=== PATIENT | female | born 1935 | race Caucasian/White ===

== ENCOUNTER → 2016-12-23 | Outpatient (CLI) | payer MEDICARE, MEDICAID ==
--- NOTE | 2016-12-23 12:36 | WOMENS IMAGING REPORT ---
EXAM DESCRIPTION: BILAT SCREENING MAMMO W/CAD COMPLETED DATE/TIME: 12/23/2016 10:52 am REASON FOR STUDY: Z12.31, ROUTINE SCREENING MAMMO Z12.31 ENCNTR SCREEN MAMMOGRAM FOR MALIGNANT NEOP LASM OF KEVIN COMPARISON: Multiple since 2008 TECHNIQUE: Standard craniocaudal and mediolateral oblique views of each breast recorded using [employer] l acquisition. LIMITATIONS: None. FINDINGS: Findings present which are benign by mammographic criteria. No suspicious masses, calcifi cations or architectural distortion. Read with the assistance of CAD. .[facility] - R2 Cenova Version 1.3 .[facility] Imaging - R2 Cenova Version 1.3 .[facility] Imaging - R2 Cenova Version 2.4 .[facility] [place] R2 Cenova Version 2.4 .[facility] - R2 Looping Inspector Version 9.2 Benign mammographic findings may include one or more of the following: Smooth masses, popcorn/rim/co arse calcifications, asymmetries, post-procedure changes, and lesions with long-standing stability. BREAST DENSITY: b. There are scattered areas of fibroglandular density. BIRAD: 2 BENIGN FINDING(S) RECOMMENDATION: ROUTINE SCREENING COMMENT: PATIENT NOTIFIED BY LETTER. The [employer] recommends an annual screening mammogram for women aged 40 years or over. Each patient will receive a reminder prior to the anniversary date of her mammogram. The [employer] (ACR) has developed recommendations for screening MRI of the breast s in certain patient populations, to be used in conjunction with mammography. Breast MRI surveillanc e may be appropriate for women with more than 20% lifetime risk of developing breast cancer as deter mined by genetic testing, significant family history of the disease, or history of mantle radiation f or Hodgkins Disease. ACR Practice Guidelines 2008. TECHNICAL DOCUMENTATION: FINDING NUMBER: (1) ASSESSMENT: (1) JOB ID: [id number] [employer]- All Rights Reserved
== END ==
LOC: WI 10:30
PROVIDERS: ATTEND Internal Medicine
DX: Z12.31 Encounter for screening mammogram for malignant neoplasm of breast (principal)
CPT/HCPCS: 77067; G0202

== ENCOUNTER → 2017-04-26 | Outpatient (CLI) | payer MEDICARE, MEDICAID ==
[2017-04-26 10:11] LABS: ABSOLUTE BASOPHILS # (AUTO) 0.1 10^3/uL (0.0-0.2); ABSOLUTE EOSINOPHILS # (AUTO) 0.2 10^3/uL (0.0-0.6); ABSOLUTE LYMPHOCYTES (AUTO) 2.3 10^3/uL (0.5-4.7); ABSOLUTE MONOCYTES (AUTO) 0.5 10^3/uL (0.1-1.4); ABSOLUTE NEUT (AUTO) 3.2 10^3/uL (1.7-8.2); BASOPHILS % (AUTO) 1.1 % (0-2); EOSINOPHILS % (AUTO) 2.5 % (0-6); HEMATOCRIT 43.9 % (36.0-47.0); HEMOGLOBIN 14.7 g/dL (12.0-15.5); HGB HCT DIFFERENCE 0.2; LYMPHOCYTES % (AUTO) 36.7 % (13-45); MEAN CORPUSCULAR HEMOGLOBIN 31.6 pg (27.0-33.4); MEAN CORPUSCULAR HGB CONC 33.6 g/dL (32.0-36.0); MEAN CORPUSCULAR VOLUME 94 fl (80-97); MONOCYTES % (AUTO) 7.9 % (3-13); RED BLOOD COUNT 4.66 10^6/uL (3.72-5.28); SEGMENTED NEUTROPHILS % (AUTO) 51.8 % (42-78); WHITE BLOOD COUNT 6.2 10^3/uL (4.0-10.5)
[2017-04-26 10:24] LABS: APPEARANCE,URINE SLIGHTLY-CLOUDY; BILIRUBIN,URINE NEGATIVE (NEGATIVE); GLUCOSE, URINE NEGATIVE (NEGATIVE); KETONES,URINE NEGATIVE (NEGATIVE); LEUKOCYTE ESTERASE,URINE TRACE (NEGATIVE); NITRITE,URINE NEGATIVE (NEGATIVE); PROTEIN,URINE NEGATIVE (NEGATIVE); URINE SPECIFIC GRAVITY 1.016
[2017-04-26 10:46] LABS: ALANINE AMINOTRANSFERASE 35 U/L (9-52); ALBUMIN 3.6 g/dL (3.5-5.0); ALKALINE PHOSPHATASE 97 U/L (38-126); ANION GAP 11 (5-19); ASPARTATE AMINO TRANSFERASE 52 U/L (14-36); BILIRUBIN,DIRECT 0.3 mg/dL (0.0-0.4); BILIRUBIN,TOTAL 1.1 mg/dL (0.2-1.3); BLOOD UREA NITROGEN 18 mg/dL (7-20); CALCIUM 9.2 mg/dL (8.4-10.2); CARBON DIOXIDE 24 mmol/L (22-30); CHLORIDE 109 mmol/L (98-107); CHOLESTEROL 143.44 mg/dL (0-200); CREATININE RESULT 1.08 mg/dL (0.52-1.25); Direct HDL 33 mg/dL (>40); GLUCOSE 88 mg/dL (75-110); POTASSIUM 4.9 mmol/L (3.6-5.0); SODIUM 144.3 mmol/L (137-145); TOTAL PROTEIN 6.7 g/dL (6.3-8.2); TRIGLYCERIDES 129 mg/dL (<150)
[2017-04-26 10:57] LABS: DIRECT LDL 76 mg/dL (<100)
[2017-04-26 10:58] LABS: PHOSPHORUS 4.1 mg/dL (2.5-4.5)
[2017-04-26 11:20] LABS: ANION GAP 11 (5-19); BLOOD UREA NITROGEN 18 mg/dL (7-20); CALCIUM 9.2 mg/dL (8.4-10.2); CARBON DIOXIDE 24 mmol/L (22-30); CHLORIDE 109 mmol/L (98-107); CREATININE RESULT 1.08 mg/dL (0.52-1.25); GLUCOSE 88 mg/dL (75-110); POTASSIUM 4.9 mmol/L (3.6-5.0); SODIUM 144.3 mmol/L (137-145)
[2017-04-26 11:21] LABS: ALBUMIN 3.6 g/dL (3.5-5.0)
[2017-04-27 07:12] LABS: VITAMIN D 25-HYDROXY 39.9 ng/mL (30.0-100.0)
[2017-04-27 11:40] LABS: CREATININE URINE 134.9 mg/dL (Not Estab.); MICROALBUMIN URINE 9.1 ug/mL (Not Estab.)
== END ==
LOC: OD 08:43
PROVIDERS: ATTEND Internal Medicine Nephrology
DX: E78.4 Other hyperlipidemia (principal); I10 Essential (primary) hypertension; I35.1 Nonrheumatic aortic (valve) insufficiency; I35.0 Nonrheumatic aortic (valve) stenosis; R01.0 Benign and innocent cardiac murmurs; M15.9 Polyosteoarthritis, unspecified; R09.89 Other specified symptoms and signs involving the circulatory and respiratory systems; Z79.899 Other long term (current) drug therapy
CPT/HCPCS: 36415; 80048; 80053; 80061; 81001; 82040; 82043; 82306; 82570; 83970; 84100; 85025

== ENCOUNTER → 2017-10-25 | Outpatient (CLI) | payer MEDICARE, MEDICAID ==
[2017-10-25 10:45] LABS: ANION GAP 10 (5-19); BLOOD UREA NITROGEN 15 mg/dL (7-20); CALCIUM 8.7 mg/dL (8.4-10.2); CARBON DIOXIDE 22 mmol/L (22-30); CHLORIDE 113 mmol/L (98-107); GLUCOSE 79 mg/dL (75-110); POTASSIUM 4.9 mmol/L (3.6-5.0)
== END ==
LOC: OD 08:07
PROVIDERS: ATTEND Internal Medicine Nephrology
DX: N18.3 Chronic kidney disease, stage 3 (moderate) (principal)
CPT/HCPCS: 36415; 80048

== ENCOUNTER → 2017-12-25 | Outpatient (CLI) | payer MEDICARE, MEDICAID ==
--- NOTE | 2017-12-25 11:42 | WOMENS IMAGING REPORT ---
EXAM DESCRIPTION: BILAT SCREENING MAMMO W/CAD COMPLETED DATE/TIME: 12/25/2017 11:11 am REASON FOR STUDY: SCREENING MAMMO Z12.31 ENCNTR SCREEN MAMMOGRAM FOR MALIGNANT NEOPLASM OF KEVIN COMPARISON: 1530-1515 TECHNIQUE: Standard craniocaudal and mediolateral oblique views of each breast recorded using digita l acquisition. LIMITATIONS: None. FINDINGS: No masses, calcifications or architectural distortion. No areas of suspicion. Read with the assistance of CAD. .[facility] - R2 Cenova Version 1.3 .[facility] Imaging - R2 Cenova Version 1.3 .[facility] Imaging - R2 Cenova Version 2.4 .[facility] [place] - R2 Cenova Version 2.4 .[facility] - R2 Hot Die Picker Version 9.2 IMPRESSION: NORMAL MAMMOGRAM. BIRADS 1. BREAST DENSITY: a. The breasts are almost entirely fatty. BIRAD: 1 NEGATIVE RECOMMENDATION: ROUTINE SCREENING COMMENT: The patient has been notified of the results by letter per [place] requirements. Additional no tification policies are in place for contacting patient with suspicious or incomplete findings. Quality ID #[id number]: The [employer] recommends an annual screening mammogram for women aged 40 years or over. This facility utilizes a reminder system to ensure that all patients receive reminder letters, and/or direct phone calls for appointments. This includes reminders for routine scr eening mammograms, diagnostic mammograms, or other Breast Imaging Interventions when appropriate. Th is patient will be placed in the appropriate reminder system. The [employer] (ACR) has developed recommendations for screening MRI of the breast s in certain patient populations, to be used in conjunction with mammography. Breast MRI surveillanc e may be appropriate for women with more than 20% lifetime risk of developing breast cancer as deter mined by genetic testing, significant family history of the disease, or history of mantle radiation f or Hodgkins Disease. ACR Practice Guidelines 2008. TECHNICAL DOCUMENTATION: FINDING NUMBER: (1) ASSESSMENT: (1) JOB ID: [id number] [employer]- All Rights Reserved
== END ==
LOC: WI 10:52
PROVIDERS: ATTEND Internal Medicine
DX: Z12.31 Encounter for screening mammogram for malignant neoplasm of breast (principal)
CPT/HCPCS: 77067

== ENCOUNTER → 2018-04-30 | Outpatient (CLI) | payer MEDICARE, MEDICAID ==
[2018-04-30 11:15] LABS: ABSOLUTE EOSINOPHILS # (AUTO) 0.2 10^3/uL (0.0-0.6); ABSOLUTE LYMPHOCYTES (AUTO) 2.5 10^3/uL (0.5-4.7); ABSOLUTE MONOCYTES (AUTO) 0.4 10^3/uL (0.1-1.4); BASOPHILS % (AUTO) 0.7 % (0-2); EOSINOPHILS % (AUTO) 3.6 % (0-6); HEMATOCRIT 39.8 % (36.0-47.0); HEMOGLOBIN 13.5 g/dL (12.0-15.5); LYMPHOCYTES % (AUTO) 39.8 % (13-45); MEAN CORPUSCULAR HEMOGLOBIN 31.6 pg (27.0-33.4); MEAN CORPUSCULAR HGB CONC 33.9 g/dL (32.0-36.0); MEAN CORPUSCULAR VOLUME 93 fl (80-97); MONOCYTES % (AUTO) 6.9 % (3-13); RED BLOOD COUNT 4.26 10^6/uL (3.72-5.28); RED CELL DISTRIBUTION WIDTH 15.9 % (11.5-14.0); TOTAL CELLS COUNTED % (AUTO) 100 %; WHITE BLOOD COUNT 6.2 10^3/uL (4.0-10.5)
[2018-04-30 11:34] LABS: APPEARANCE,URINE CLOUDY; BILIRUBIN,URINE NEGATIVE (NEGATIVE); GLUCOSE, URINE NEGATIVE (NEGATIVE); KETONES,URINE NEGATIVE (NEGATIVE); LEUKOCYTE ESTERASE,URINE LARGE (NEGATIVE); NITRITE,URINE NEGATIVE (NEGATIVE); PROTEIN,URINE NEGATIVE (NEGATIVE); URINE SPECIFIC GRAVITY 1.018
[2018-04-30 11:37] LABS: ALBUMIN 3.3 g/dL (3.5-5.0); ANION GAP 9 (5-19); BLOOD UREA NITROGEN 18 mg/dL (7-20); CALCIUM 9.1 mg/dL (8.4-10.2); CARBON DIOXIDE 23 mmol/L (22-30); CHLORIDE 113 mmol/L (98-107); GLUCOSE 81 mg/dL (75-110); PHOSPHORUS 3.8 mg/dL (2.5-4.5); POTASSIUM 4.5 mmol/L (3.6-5.0); SODIUM 144.7 mmol/L (137-145)
[2018-04-30 11:50] LABS: ALANINE AMINOTRANSFERASE 29 U/L (9-52); ALBUMIN 3.3 g/dL (3.5-5.0); ALKALINE PHOSPHATASE 78 U/L (38-126); ANION GAP 9 (5-19); ASPARTATE AMINO TRANSFERASE 51 U/L (14-36); BILIRUBIN,DIRECT 0.4 mg/dL (0.0-0.4); BILIRUBIN,TOTAL 1.5 mg/dL (0.2-1.3); BLOOD UREA NITROGEN 18 mg/dL (7-20); CALCIUM 9.1 mg/dL (8.4-10.2); CARBON DIOXIDE 23 mmol/L (22-30); CHLORIDE 113 mmol/L (98-107); CHOLESTEROL 121.87 mg/dL (0-200); DIRECT LDL 68 mg/dL (<100); GLUCOSE 81 mg/dL (75-110); POTASSIUM 4.5 mmol/L (3.6-5.0); SODIUM 144.7 mmol/L (137-145); TOTAL PROTEIN 6.1 g/dL (6.3-8.2); TRIGLYCERIDES 83 mg/dL (<150); VLDL CHOLESTEROL 16.6 mg/dL (10-31)
[2018-04-30 11:50] LABS: ADD MANUAL MICROSCOPIC YES; COLOR,URINE YELLOW
[2018-04-30 11:52] LABS: BACTERIA,URINE 2+ /HPF; WBC,URINE 30-50 /HPF
[2018-04-30 11:55] LABS: PLATELET COUNT 82 10^3/uL (150-450)
[2018-05-01 13:38] LABS: CREATININE URINE 164.5 mg/dL (Not Estab.); MICROALBUMIN URINE 28.2 ug/mL (Not Estab.)
== END ==
LOC: OD 10:18
PROVIDERS: ATTEND Internal Medicine Nephrology
DX: I12.9 Hypertensive chronic kidney disease with stage 1 through stage 4 chronic kidney disease, or unspecified chronic kidney disease (principal); N18.3 Chronic kidney disease, stage 3 (moderate); E78.4 Other hyperlipidemia; I35.1 Nonrheumatic aortic (valve) insufficiency; I35.0 Nonrheumatic aortic (valve) stenosis; R01.1 Cardiac murmur, unspecified; M15.9 Polyosteoarthritis, unspecified; R09.89 Other specified symptoms and signs involving the circulatory and respiratory systems; Z79.899 Other long term (current) drug therapy
CPT/HCPCS: 36415; 80048; 80053; 80061; 81001; 82040; 82043; 82306; 82570; 83970; 84100; 85025

== ENCOUNTER → 2018-12-01 | Outpatient (CLI) | payer MEDICARE, MEDICAID ==
[2018-12-01 10:33] LABS: ALANINE AMINOTRANSFERASE 22 U/L (9-52); ALBUMIN 2.9 g/dL (3.5-5.0); ALKALINE PHOSPHATASE 94 U/L (38-126); ASPARTATE AMINO TRANSFERASE 49 U/L (14-36); BILIRUBIN,DIRECT 0.4 mg/dL (0.0-0.4); BILIRUBIN,TOTAL 1.6 mg/dL (0.2-1.3); BLOOD UREA NITROGEN 16 mg/dL (7-20); CALCIUM 8.7 mg/dL (8.4-10.2); CHOLESTEROL 103.17 mg/dL (0-200); GLUCOSE 89 mg/dL (75-110); POTASSIUM 4.9 mmol/L (3.6-5.0); TOTAL PROTEIN 6.2 g/dL (6.3-8.2); TRIGLYCERIDES 76 mg/dL (<150)
[2018-12-01 10:38] LABS: ANION GAP 6 (5-19); CARBON DIOXIDE 23 mmol/L (22-30); CHLORIDE 113 mmol/L (98-107); SODIUM 141.7 mmol/L (137-145)
[2018-12-01 10:44] LABS: DIRECT LDL 60 mg/dL (<100)
== END ==
LOC: OD 09:13
PROVIDERS: ATTEND Internal Medicine
DX: I12.9 Hypertensive chronic kidney disease with stage 1 through stage 4 chronic kidney disease, or unspecified chronic kidney disease (principal); N18.2 Chronic kidney disease, stage 2 (mild); I35.1 Nonrheumatic aortic (valve) insufficiency; R01.1 Cardiac murmur, unspecified; E78.49 Other hyperlipidemia; M15.9 Polyosteoarthritis, unspecified; R09.89 Other specified symptoms and signs involving the circulatory and respiratory systems; Z79.899 Other long term (current) drug therapy
CPT/HCPCS: 36415; 80053; 80061

== ENCOUNTER 2018-12-09 09:31 | Emergency (ER) | payer MEDICARE, MEDICAID ==
--- NOTE | 2018-12-09 10:18 | ER Document Report ---
ED Medical Screen (RME) - General Chief Complaint: Abdominal Pain Stated Complaint: STOMACH PAIN Time Seen by Provider: 12/09/18 10:17 Mode of Arrival: Ambulatory Information source: Patient TRAVEL OUTSIDE OF THE [place] IN LAST 30 DAYS: No - HPI Patient complains to provider of: abd pain Onset: Other - pt. states mid abd pain for the past 2-3 months - Related Data Allergies/Adverse Reactions: No Known Allergies Allergy (Verified 12/09/18 09:31) Past Medical History - Past Medical History Cardiac Medical History: Reports: Hx Hypertension - medicated Denies: Hx Coronary Artery Disease, Hx Heart Attack Pulmonary Medical History: Reports: Hx Pneumonia Denies: Hx Asthma, Hx Bronchitis, Hx COPD Neurological Medical History: Denies: Hx Cerebrovascular Accident, Hx Seizures GI Medical History: Denies: Hx Hepatitis, Hx Hiatal Hernia, Hx Ulcer Musculoskeltal Medical History: Reports Hx Arthritis Infectious Medical History: Denies: Hx Hepatitis Past Surgical History: Denies: Hx Hysterectomy, Hx Mastectomy, Hx Open Heart Surgery, Hx Pacemaker - Immunizations Hx Diphtheria, Pertussis, Tetanus Vaccination: Yes Physical Exam - Vital signs Vitals: Temp Pulse Resp BP Pulse Ox 97.4 F 62 16 152/69 H 100 12/09/18 09:44 12/09/18 09:44 12/09/18 09:44 12/09/18 09:44 12/09/18 09:44 Course - Vital Signs Vital signs: Temp Pulse Resp BP Pulse Ox 97.4 F 62 16 152/69 H 100 12/09/18 09:44 12/09/18 09:44 12/09/18 09:44 12/09/18 09:44 12/09/18 09:44 Doctor's Discharge - Discharge Referrals: JOSE NORIEGA MD [Primary Care Provider] - Follow up as needed
--- NOTE | 2018-12-09 11:10 | RADIOLOGY REPORT (SQ) ---
EXAM DESCRIPTION: ACUTE ABDOMEN SERIES COMPLETED DATE/TIME: 12/09/2018 10:48 am REASON FOR STUDY: abd pain COMPARISON: None. NUMBER OF VIEWS: Three views. TECHNIQUE: Frontal chest, supine abdomen and upright/decubitus abdomen radiographic images acquired. LIMITATIONS: None. FINDINGS: CHEST: Lungs clear of infiltrates. FREE AIR: None. No abnormal gas collections. BOWEL GAS PATTERN: Nonobstructive pattern. No dilated loops or air fluid levels. CALCIFICATIONS: No suspicious calcifications. HARDWARE: Right upper quadrant clips. SOFT TISSUES: No gross mass or suggestion of organomegaly. BONES: No acute fracture. No worrisome bone lesions. OTHER: No other significant finding. IMPRESSION: NO RADIOGRAPHIC EVIDENCE FOR ACUTE ABDOMINAL DISEASE. TECHNICAL DOCUMENTATION: JOB ID: [id number] [employer]- All Rights Reserved Reading location - IP/workstation name: [email or web address]
[2018-12-09] MEDS ORDERED: NORMAL SALINE 500 ML IV ONE (11:26)
[2018-12-09 11:42] LABS: ABSOLUTE BASOPHILS # (AUTO) 0.1 10^3/uL (0.0-0.2); ABSOLUTE EOSINOPHILS # (AUTO) 0.2 10^3/uL (0.0-0.6); ABSOLUTE LYMPHOCYTES (AUTO) 2.3 10^3/uL (0.5-4.7); ABSOLUTE MONOCYTES (AUTO) 0.6 10^3/uL (0.1-1.4); ABSOLUTE NEUT (AUTO) 5.1 10^3/uL (1.7-8.2); BASOPHILS % (AUTO) 1.2 % (0-2); EOSINOPHILS % (AUTO) 2.1 % (0-6); HEMATOCRIT 39.5 % (36.0-47.0); HEMOGLOBIN 13.4 g/dL (12.0-15.5); LYMPHOCYTES % (AUTO) 27.5 % (13-45); MEAN CORPUSCULAR HEMOGLOBIN 31.9 pg (27.0-33.4); MEAN CORPUSCULAR HGB CONC 33.8 g/dL (32.0-36.0); MEAN CORPUSCULAR VOLUME 94 fl (80-97); MONOCYTES % (AUTO) 7.2 % (3-13); PLATELET COUNT 150 10^3/uL (150-450); RED BLOOD COUNT 4.18 10^6/uL (3.72-5.28); RED CELL DISTRIBUTION WIDTH 16.7 % (11.5-14.0); TOTAL CELLS COUNTED % (AUTO) 100 %; WHITE BLOOD COUNT 8.3 10^3/uL (4.0-10.5)
[2018-12-09 11:56] LABS: ALANINE AMINOTRANSFERASE 32 U/L (9-52); ALBUMIN 3.1 g/dL (3.5-5.0); ALKALINE PHOSPHATASE 110 U/L (38-126); ANION GAP 5 (5-19); ASPARTATE AMINO TRANSFERASE 61 U/L (14-36); BILIRUBIN,DIRECT 0.2 mg/dL (0.0-0.4); BILIRUBIN,TOTAL 1.1 mg/dL (0.2-1.3); BLOOD UREA NITROGEN 13 mg/dL (7-20); CALCIUM 8.3 mg/dL (8.4-10.2); CARBON DIOXIDE 23 mmol/L (22-30); CHLORIDE 115 mmol/L (98-107); GLUCOSE 94 mg/dL (75-110); LIPASE 156.8 U/L (23-300); POTASSIUM 5.1 mmol/L (3.6-5.0); SODIUM 142.8 mmol/L (137-145); TOTAL PROTEIN 6.3 g/dL (6.3-8.2)
--- NOTE | 2018-12-09 12:54 | RADIOLOGY REPORT (SQ) ---
EXAM DESCRIPTION: CT ABD/PELVIS WITH IV ONLY COMPLETED DATE/TIME: 12/09/2018 12:41 pm REASON FOR STUDY: abd pain COMPARISON: None. TECHNIQUE: CT scan of the abdomen and pelvis performed using helical scanning technique with dynamic intravenous contrast injection. No oral contrast. Images reviewed with lung, soft tissue, and bone windows. Reconstructed coronal and sagittal MPR images reviewed. Delayed images for evaluation of the urinary system also acquired. All images stored on PACS. All CT scanners at this facility use dose modulation, iterative reconstruction, and/or weight based d osing when appropriate to reduce radiation dose to as low as reasonably achievable (ALARA). [facility]: Dose Right [facility]: CareDose [facility]: Dose Right [facility]: Teradose 4D [facility]: Smart [employer] CONTRAST TYPE AND DOSE: Not recorded not recorded RENAL FUNCTION: GFR > 60. RADIATION DOSE: . LIMITATIONS: None. FINDINGS: LOWER CHEST: No significant findings. No nodules or infiltrates. LIVER: No focal masses in the liver. The liver is small and slightly nodular. The main portal vein is widely patent however the left and right portal vein branch tears are extremely small. . SPLEEN: Spleen is normal size. Left upper quadrant varices. PANCREAS: No masses. No significant calcifications. No adjacent inflammation or peripancreatic fluid collections. Pancreatic duct not dilated. GALLBLADDER: Surgically absent ADRENAL GLANDS: No significant finding. RIGHT KIDNEY AND URETER: No solid masses. No significant calcifications. No hydronephrosis or hyd roureter. LEFT KIDNEY AND URETER: No solid masses. No significant calcifications. No hydronephrosis or hydr oureter. AORTA AND VESSELS: No aneurysm. No dissection. Renal arteries, SMA, celiac without stenosis. RETROPERITONEUM: No retroperitoneal adenopathy, hemorrhage or masses. BOWEL AND PERITONEAL CAVITY: Diverticulosis. Marked ascites. Hiatal hernia. APPENDIX: Not visualized. PELVIS: Generalize free fluid. The bladder is unremarkable. ABDOMINAL WALL: No masses. No hernias. BONES: No significant or acute findings. OTHER: No other significant finding. 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 Marked ascites. Main portal vein is patent however left and right portal veins are quite small. Suspect portal hyper tension. Left upper quadrant varices. TECHNICAL DOCUMENTATION: JOB ID: [id number] Quality ID # [id number]: Final reports with documentation of one or more dose reduction techniques (e.g., Au tomated exposure control, adjustment of the mA and/or kV according to patient size, use of iterative reconstruction technique) 2010 [employer]- All Rights Reserved Reading location - IP/workstation name: [email or web address]
--- NOTE | 2018-12-09 13:43 | ER Document Report ---
ED General - General Chief Complaint: Abdominal Pain Stated Complaint: STOMACH PAIN Time Seen by Provider: 12/09/18 10:17 Mode of Arrival: Ambulatory TRAVEL OUTSIDE OF THE [place]. IN LAST 30 DAYS: No - HPI Patient complains to provider of: Abdominal pain Notes: Patient coming in for evaluation of abdominal pain. Patient is known pain ongoing for the last 2 months. Patient states has a history of diverticulosis diverticulitis. Patient denies any nausea vomiting diarrhea fever chills. Patient states she is seeing her primary care physician multiple times for abdominal pain however no answers has been given to her. Patient states she goes to start medical. Patient denies any recent antibiotics. Patient denies any trauma. Patient states she feels like her stomach continues to bloat otherwise denies acute exacerbation of any of her chronic complaints. - Related Data Allergies/Adverse Reactions: No Known Allergies Allergy (Verified 12/09/18 09:31) Past Medical History - General Information source: Patient - Social History Smoking Status: Never Smoker Frequency of alcohol use: None Family History: Reviewed & Not Pertinent Patient has suicidal ideation: No Patient has homicidal ideation: No - Past Medical History Cardiac Medical History: Reports: Hx Hypertension - medicated Denies: Hx Coronary Artery Disease, Hx Heart Attack Pulmonary Medical History: Reports: Hx Pneumonia Denies: Hx Asthma, Hx Bronchitis, Hx COPD Neurological Medical History: Denies: Hx Cerebrovascular Accident, Hx Seizures Renal/ Medical History: Denies: Hx Peritoneal Dialysis GI Medical History: Denies: Hx Hepatitis, Hx Hiatal Hernia, Hx Ulcer Musculoskeletal Medical History: Reports Hx Arthritis Infectious Medical History: Denies: Hx Hepatitis Past Surgical History: Denies: Hx Hysterectomy, Hx Mastectomy, Hx Open Heart Surgery, Hx Pacemaker - Immunizations Hx Diphtheria, Pertussis, Tetanus Vaccination: Yes Review of Systems - Review of Systems Constitutional: No symptoms reported EENT: No symptoms reported Cardiovascular: No symptoms reported Respiratory: No symptoms reported Gastrointestinal: Abdominal pain Genitourinary: No symptoms reported Female Genitourinary: No symptoms reported Musculoskeletal: No symptoms reported Skin: No symptoms reported Hematologic/Lymphatic: No symptoms reported Neurological/Psychological: No symptoms reported -: Yes All other systems reviewed and negative Physical Exam - Vital signs Vitals: Temp Pulse Resp BP Pulse Ox 97.4 F 62 16 152/69 H 100 12/09/18 09:44 12/09/18 09:44 12/09/18 09:44 12/09/18 09:44 12/09/18 09:44 Interpretation: Normal - General General appearance: Appears well, Alert - HEENT Head: Normocephalic, Atraumatic Eyes: Normal Pupils: PERRL - Respiratory Respiratory status: No respiratory distress Chest status: Nontender Breath sounds: Normal Chest palpation: Normal - Cardiovascular Rhythm: Regular Heart sounds: Normal auscultation Murmur: No - Abdominal Inspection: Normal Distension: Fluid wave Bowel sounds: Normal Tenderness: Nontender Organomegaly: No organomegaly - Back Back: Normal, Nontender - Extremities General upper extremity: Normal inspection, Nontender, Normal color, Normal ROM, Normal temperature General lower extremity: Normal inspection, Nontender, Normal color, Normal ROM, Normal temperature, Normal weight bearing. No: Teetee's sign - Neurological Neuro grossly intact: Yes Cognition: Normal Orientation: AAOx4 Luis Coma Scale Eye Opening: Spontaneous Luis Coma Scale Verbal: Oriented Luis Coma Scale Motor: Obeys Commands Luis Coma Scale Total: 15 Speech: Normal Motor strength normal: LUE, RUE, LLE, RLE Sensory: Normal - Psychological Associated symptoms: Normal affect, Normal mood - Skin Skin Temperature: Warm Skin Moisture: Dry Skin Color: Normal Course - Re-evaluation Re-evalutation: 12/09/18 14:37 CT scan shows possible signs of portal hypertension with cirrhosis with ascites. Patient has no white count no fever no abdominal tenderness upon examination do not suspect SBP or any other critical pathology. To the patient that she will need to follow-up with her primary care physician on Monday and will likely need a referral to a GI specialist for further evaluation. Patient stated understanding was able to ambulate all the ER referral for her care. - Vital Signs Vital signs: Temp Pulse Resp BP Pulse Ox 97.5 F 68 18 114/66 100 12/09/18 13:58 12/09/18 13:58 12/09/18 13:58 12/09/18 13:58 12/09/18 13:58 - Laboratory Result Diagrams: 12/09/18 11:25 12/09/18 11:25 Laboratory results interpreted by me: 12/09/18 12/09/18 11:25 11:25 RDW 16.7 H Potassium 5.1 H Chloride 115 H Est GFR (Non-Af Amer) 56 L Calcium 8.3 L AST 61 H Albumin 3.1 L Discharge - Discharge Clinical Impression: Abdominal pain Qualifiers: Abdominal location: generalized Qualified Code(s): R10.84 - Generalized abdominal pain Disposition: HOME, SELF-CARE Instructions: Cirrhosis ([facility]), Gastroenterology Additional Instructions: Laboratory studies today did not show any acute abnormality. Your CT scan is concerning for portal hypertension with signs of fluid in the abdomen called ascites and possibility of liver cirrhosis. Otherwise there is no signs of any infection more likely 1 of these other underlying etiologies is the reason why he is not having abdominal pain for the past few months. I highly recommend that you call your family physician on Monday for possible referral to a GI specialist continue your home medications as previously prescribed you may take the Bentyl and/or Tylenol for pain control please eat a balanced bland diet return to ER symptoms worsen. Prescriptions: Dicyclomine HCl [Bentyl 20 mg Tablet] 20 mg PO QID #14 tablet Referrals: JOSE NORIEGA MD [Primary Care Provider] - Follow up as needed
[2018-12-09 13:58] VITALS: BP 114/66
== END 2018-12-09 14:00 | disposition home or self-care (01) ==
LOC: ER 09:31
DX: R10.84 Generalized abdominal pain (principal); K74.60 Unspecified cirrhosis of liver; R18.8 Other ascites; I10 Essential (primary) hypertension; Z87.19 Personal history of other diseases of the digestive system
CPT/HCPCS: 99284; 96360; 36415; 83690; 85025; 80053; 74022; 74177; J7040

== ENCOUNTER → 2018-12-29 | Outpatient (CLI) | payer MEDICARE, MEDICAID ==
[2018-12-29 11:09] LABS: INTERNATIONAL RATION (INR) 1.37; PROTHROMBIN TIME 17.6 SEC (11.4-15.4)
[2018-12-29 11:22] LABS: ALANINE AMINOTRANSFERASE 26 U/L (9-52); ALBUMIN 3.2 g/dL (3.5-5.0); ALKALINE PHOSPHATASE 87 U/L (38-126); ASPARTATE AMINO TRANSFERASE 50 U/L (14-36); BILIRUBIN,DIRECT 0.4 mg/dL (0.0-0.4); BILIRUBIN,TOTAL 1.5 mg/dL (0.2-1.3); TOTAL PROTEIN 6.4 g/dL (6.3-8.2)
[2019-01-01 15:03] LABS: ACTIN (SMOOTH MUSCLE) ANTIBODY 22 Units (0-19); MITOCHONDRIAL (M2) ANTIBODY <20.0 Units (0.0-20.0)
[2019-01-01 18:36] LABS: HEPATITIS B CORE AB IGM Negative (Negative); HEPATITIS B CORE AB TOT Negative (Negative); HEPATITIS BE AB Negative (Negative); HEPATITIS BE ANTIGEN Negative (Negative); HEPATITIS C VIRUS AB 0.1 s/co ratio (0.0-0.9); HEPATITS B SURFACE ANTIGEN Negative (Negative)
[2019-01-02 09:23] LABS: HEPATITIS B SURFACE AB QUAL Non Reactive (.)
== END ==
LOC: OD 09:56
PROVIDERS: ATTEND Physician Assistant Surgical
DX: K74.69 Other cirrhosis of liver (principal); R94.5 Abnormal results of liver function studies
CPT/HCPCS: 36415; 80076; 85610; 86038; 86235; 86256; 86704; 86705; 86706; 86707; 86803; 87340; 87350

== ENCOUNTER → 2019-01-16 | Outpatient (CLI) | payer MEDICARE, MEDICAID | LOC: OD 11:04 | PROVIDERS: ATTEND Internal Medicine Gastroenterology | DX: K31.89 Other diseases of stomach and duodenum (principal) | CPT/HCPCS: 36415; 86677 ==

== ENCOUNTER → 2019-02-12 | Outpatient (CLI) | payer MEDICARE, MEDICAID ==
[2019-02-12 10:06] LABS: HEMATOCRIT 39.1 % (36.0-47.0); HEMOGLOBIN 13.3 g/dL (12.0-15.5); MEAN CORPUSCULAR HEMOGLOBIN 32.6 pg (27.0-33.4); MEAN CORPUSCULAR VOLUME 96 fl (80-97); PLATELET COUNT 135 10^3/uL (150-450); RED BLOOD COUNT 4.07 10^6/uL (3.72-5.28); RED CELL DISTRIBUTION WIDTH 17.7 % (11.5-14.0); WHITE BLOOD COUNT 7.7 10^3/uL (4.0-10.5)
[2019-02-12 10:34] LABS: ALANINE AMINOTRANSFERASE 24 U/L (9-52); ALBUMIN 3.1 g/dL (3.5-5.0); ALKALINE PHOSPHATASE 112 U/L (38-126); ANION GAP 9 (5-19); ASPARTATE AMINO TRANSFERASE 55 U/L (14-36); BILIRUBIN,DIRECT 0.4 mg/dL (0.0-0.4); BILIRUBIN,TOTAL 1.3 mg/dL (0.2-1.3); BLOOD UREA NITROGEN 18 mg/dL (7-20); CALCIUM 8.8 mg/dL (8.4-10.2); CARBON DIOXIDE 22 mmol/L (22-30); CHLORIDE 107 mmol/L (98-107); GLUCOSE 81 mg/dL (75-110); POTASSIUM 4.5 mmol/L (3.6-5.0); SODIUM 138.2 mmol/L (137-145); TOTAL PROTEIN 6.5 g/dL (6.3-8.2)
== END ==
LOC: OD 09:11
PROVIDERS: ATTEND Physician Assistant Surgical
DX: K76.6 Portal hypertension (principal); K74.69 Other cirrhosis of liver
CPT/HCPCS: 36415; 80048; 80076; 85027

== ENCOUNTER → 2019-03-29 | Outpatient (CLI) | payer MEDICARE, MEDICAID ==
[2019-03-29 15:45] LABS: HEMOGLOBIN 12.7 g/dL (12.0-15.5); MEAN CORPUSCULAR HEMOGLOBIN 31.8 pg (27.0-33.4); MEAN CORPUSCULAR HGB CONC 33.4 g/dL (32.0-36.0); MEAN CORPUSCULAR VOLUME 95 fl (80-97); PLATELET COUNT 137 10^3/uL (150-450); RED CELL DISTRIBUTION WIDTH 16.5 % (11.5-14.0); WHITE BLOOD COUNT 6.9 10^3/uL (4.0-10.5)
[2019-03-29 15:57] LABS: ANION GAP 9 (5-19); BLOOD UREA NITROGEN 30 mg/dL (7-20); CALCIUM 8.9 mg/dL (8.4-10.2); CARBON DIOXIDE 21 mmol/L (22-30); CHLORIDE 109 mmol/L (98-107); GLUCOSE 146 mg/dL (75-110); PHOSPHORUS 4.3 mg/dL (2.5-4.5); POTASSIUM 4.7 mmol/L (3.6-5.0); SODIUM 139.3 mmol/L (137-145)
== END ==
LOC: OD 14:34
PROVIDERS: ATTEND Internal Medicine Gastroenterology
DX: K74.69 Other cirrhosis of liver (principal)
CPT/HCPCS: 36415; 80048; 83735; 84100; 85027

== ENCOUNTER 2019-10-22 08:07 | Emergency (ER) | payer MEDICARE, MEDICAID ==
[2019-10-22] MEDS ORDERED: PANTOPRAZOLE SODIUM 40 MG VIAL IV ONE (08:35)
--- NOTE | 2019-10-22 08:39 | ER Document Report ---
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 Patient stated the blood was bright red and dark and coffee ground. She is noticed some dark stools also this morning. Patient denies any abdominal pain denies fever chills cough or sore throat denies chest pain or shortness of breath. The patient has a history of nonalcoholic cirrhosis. She was recently started on lactulose several weeks ago. States she is doing better with that. She denies any history of esophageal varices. TRAVEL OUTSIDE OF THE [place] IN LAST 30 DAYS: No - Related Data Allergies/Adverse Reactions: No Known Allergies Allergy (Verified 12/09/18 09:31) Past Medical History - Social History Smoking Status: Never Smoker Family History: Reviewed & Not Pertinent Patient has suicidal ideation: No Patient has homicidal ideation: No - Past Medical History Cardiac Medical History: Reports: Hx Hypertension - medicated Denies: Hx Coronary Artery Disease, Hx Heart Attack Pulmonary Medical History: Reports: Hx Pneumonia Denies: Hx Asthma, Hx Bronchitis, Hx COPD Neurological Medical History: Denies: Hx Cerebrovascular Accident, Hx Seizures Renal/ Medical History: Denies: Hx Peritoneal Dialysis GI Medical History: Denies: Hx Hepatitis, Hx Hiatal Hernia, Hx Ulcer Musculoskeletal Medical History: Reports Hx Arthritis Infectious Medical History: Denies: Hx Hepatitis Past Surgical History: Denies: Hx Hysterectomy, Hx Mastectomy, Hx Open Heart Surgery, Hx Pacemaker - Immunizations Hx Diphtheria, Pertussis, Tetanus Vaccination: Yes Review of Systems - Review of Systems Constitutional: denies: Chills, Fever Gastrointestinal: Diarrhea, Nausea, Vomiting, Blood in vomit, Black stools. denies: Abdominal pain Genitourinary: denies: Dysuria, Hematuria Female Genitourinary: denies: Vaginal bleeding Musculoskeletal: No symptoms reported Hematologic/Lymphatic: Easy bruising Neurological/Psychological: No symptoms reported -: Yes All other systems reviewed and negative Physical Exam - Vital signs Vitals: Temp Pulse Resp BP Pulse Ox 97.4 F 65 16 128/67 H 100 10/22/19 08:12 10/22/19 08:12 10/22/19 08:12 10/22/19 08:12 10/22/19 08:12 - Notes Notes: GENERAL_APPEARANCE: well_nourished but thin, alert, cooperative, no_ac ute_distress, no_obvious_discomfort. VITALS: reviewed, see vital signs table. HEAD: no_swelling\tenderness on the head. EYES: PERRL, EOMI, conjunctiva_clear. NOSE: no_nasal_discharge. MOUTH: (-)decreased moisture. THROAT: no_tonsilar_inflammation, no_airway_obstruction. no_lymphadenopathy NECK: supple, no_neck_tenderness, (-)thyromegaly. BACK: no_back_tenderness. CHEST_WALL: no_chest_tenderness. LUNGS: no_wheezing, no_rales, no_rhonchi, (-)accessory muscle use, good air exchange bilateral. HEART: normal_rate, normal_rhythm, normal_S1, normal_S2, (-)S3, (-)S4, no_murmur, no_rub. ABDOMEN: normal_BS, soft, no_abd_tenderness, (-)guarding, (-)rebound, no_organomegaly, no_abd_masses. EXTREMITIES: good pulses in all_extremities, no_swelling\tenderness in the extremities, no_edema. SKIN: warm, dry, good_color, no_rash. MENTAL_STATUS: speech_clear, oriented_X_3, normal_affect, resp onds_appropriately to questions. NEURO: Neg Motor or Sensory Deficits on exam, CN 2-12 intact, DTR 2+ symmetric x 4, No cerbellar signs Course - Re-evaluation Re-evalutation: 10/22/19 08:39 Elderly female with a history of nonalcoholic cirrhosis presents to the ER after vomiting blood. Will begin work-up. We will type and screen. IV fluids. Give 80 mg of IV Protonix. 10/22/19 12:04 Patient's hemoglobin is stable she has not had any additional episodes of emesis. Black tarry stool guaiac positive. I try to get a hold of her private GI doctor Dr. Han. We have not been able to get a hold of him. He is not automation and controls instructor. I have spoke with the hospitalist service Dr. Lawrence. They will admit the patient and either have Dr. Han or the surgeons on board for endoscopy - Vital Signs Vital signs: Temp Pulse Resp BP Pulse Ox 97.4 F 65 19 116/49 L 99 10/22/19 08:26 10/22/19 08:26 10/22/19 11:01 10/22/19 11:01 10/22/19 11:01 - Laboratory Result Diagrams: 10/22/19 08:50 10/22/19 10:03 Laboratory results interpreted by me: 10/22/19 10/22/19 10/22/19 08:50 08:50 10:03 WBC 16.4 H RDW 16.7 H Absolute Neuts (auto) 12.0 H PT 19.3 H Potassium 5.4 H Chloride 108 H Anion Gap 4 L BUN 46 H Est GFR ( Amer) 57 L Est GFR (MDRD) Non-Af 47 L Glucose 111 H Total Bilirubin 1.5 H AST 44 H Total Protein 5.9 L Albumin 2.6 L - Diagnostic Test Radiology reviewed: Image reviewed Radiology results interpreted by me: 10/22/19 12:03 Acute Abdomen Series 10/22/19 08:34 IMPRESSION: No evidence of acute intrathoracic process. No evidence of intestinal obstruction or other acute intra-abdominal/pelvic proc ess. Discharge - Discharge Clinical Impression: GI bleed Qualifiers: GI bleed type/associated pathology: gastrointestinal hemorrhage with hematemesis Qualified Code(s): K92.0 - Hematemesis Condition: Good Disposition: ADMITTED OBSERVATION Admitting Provider: Joaquim (Hospitalist) Unit Admitted: Telemetry Referrals: IRENE LAL MD [ACTIVE STAFF] - Follow up as needed
[2019-10-22 09:14] LABS: ABSOLUTE BASOPHILS # (AUTO) 0.1 10^3/uL (0.0-0.2); ABSOLUTE EOSINOPHILS # (AUTO) 0.1 10^3/uL (0.0-0.6); ABSOLUTE LYMPHOCYTES (AUTO) 3.1 10^3/uL (0.5-4.7); BASOPHILS % (AUTO) 0.5 % (0-2); EOSINOPHILS % (AUTO) 0.8 % (0-6); HEMATOCRIT 38.9 % (36.0-47.0); HEMOGLOBIN 13.1 g/dL (12.0-15.5); LYMPHOCYTES % (AUTO) 19.1 % (13-45); MEAN CORPUSCULAR HEMOGLOBIN 32.1 pg (27.0-33.4); MEAN CORPUSCULAR HGB CONC 33.8 g/dL (32.0-36.0); MEAN CORPUSCULAR VOLUME 95 fl (80-97); MONOCYTES % (AUTO) 6.4 % (3-13); PLATELET COUNT 159 10^3/uL (150-450); RED BLOOD COUNT 4.09 10^6/uL (3.72-5.28); RED CELL DISTRIBUTION WIDTH 16.7 % (11.5-14.0); SEGMENTED NEUTROPHILS % (AUTO) 73.2 % (42-78); TOTAL CELLS COUNTED % (AUTO) 100 %; WHITE BLOOD COUNT 16.4 10^3/uL (4.0-10.5)
[2019-10-22 09:35] LABS: INTERNATIONAL RATION (INR) 1.61; PARTIAL THROMBOPLASTIN TIME 28.4 SEC (23.5-35.8); PROTHROMBIN TIME 19.3 SEC (11.4-15.4)
--- NOTE | 2019-10-22 09:52 | RADIOLOGY REPORT (SQ) ---
EXAM DESCRIPTION: ACUTE ABDOMEN SERIES COMPLETED DATE/TIME: 10/22/2019 9:30 am REASON FOR STUDY: GI Bleeding COMPARISON: None. NUMBER OF VIEWS: Three views. TECHNIQUE: Frontal chest, supine abdomen and upright/decubitus abdomen radiographic images acquired. LIMITATIONS: None. FINDINGS: CHEST: Lungs clear of infiltrates. FREE AIR: None. No abnormal gas collections. BOWEL GAS PATTERN: Nonobstructive pattern. No dilated loops or air fluid levels. CALCIFICATIONS: No suspicious calcifications. HARDWARE: Prior cholecystectomy. SOFT TISSUES: No gross mass or suggestion of organomegaly. BONES: Decreased mineralization. Thoracolumbar spondylosis with serpiginous curvature. OTHER: No other significant finding. IMPRESSION: No evidence of acute intrathoracic process. No evidence of intestinal obstruction or other acute intra-abdominal/pelvic process. TECHNICAL DOCUMENTATION: JOB ID: [id number] [employer]- All Rights Reserved Reading location - IP/workstation name: [email or web address]
[2019-10-22 10:42] LABS: ALBUMIN 2.6 g/dL (3.5-5.0); ALKALINE PHOSPHATASE 77 U/L (38-126); ASPARTATE AMINO TRANSFERASE 44 U/L (14-36); BILIRUBIN,DIRECT 0.2 mg/dL (0.0-0.4); BILIRUBIN,TOTAL 1.5 mg/dL (0.2-1.3); BLOOD UREA NITROGEN 46 mg/dL (7-20); CALCIUM 8.5 mg/dL (8.4-10.2); CARBON DIOXIDE 26 mmol/L (22-30); CHLORIDE 108 mmol/L (98-107); GLUCOSE 111 mg/dL (75-110); POTASSIUM 5.4 mmol/L (3.6-5.0); TOTAL PROTEIN 5.9 g/dL (6.3-8.2)
[2019-10-22 11:20] LABS: ANION GAP 4 (5-19)
[2019-10-22] MEDS ORDERED: NORMAL SALINE 1000 ML 1,000 ML IV ONE ×2 (11:57→18:07)
[2019-10-22 20:11] VITALS: BP 90/57
--- NOTE | 2019-10-22 20:51 | ER Document Report ---
Doctor's Note Notes: 10/22/19 20:51 Transport is at bedside to transfer patient. Patient is alert, oriented, answering all questions appropriately. I assisted her up to the restroom. She is stable for transport at this time and denies any needs.
== END 2019-10-22 21:04 | disposition short-term general hospital (02) ==
LOC: ER 08:07 → EH 12:23 → UNDOADMOB 12:23 → UNDODISOB 15:00 → EH 21:04
DX: K92.0 Hematemesis (principal); K74.60 Unspecified cirrhosis of liver; I10 Essential (primary) hypertension
CPT/HCPCS: 99285; 96361; 96374; 86900; 86901; 36415; 86850; 83690; 85025; 85610; 85730; 80053; 74022; C9113; J7030

== ENCOUNTER 2019-10-30 10:47 | Emergency (ER) | payer MEDICARE, MEDICAID ==
[~2019-10-30 10:47] MED LIST: EPINEPHRINE INJ 1 MG/10 ML DISP.SYRIN ONE; SODIUM BICARBONATE 8.4% INJ 50 MEQ/50 ML DISP.SYRIN ONE
--- NOTE | 2019-10-30 11:04 | ER Document Report ---
ED General - General Chief Complaint: Unresponsive Stated Complaint: UNRESPONSIVE Time Seen by Provider: 10/30/19 10:58 Notes: 84-year-old white female patient presents by EMS diaphoretic hypotensive and extremis heart rates was 40 on arrival by EMS sats were in the 90s bedside EMS report of a lactic acid of 5.6 patient was given oxygen and IO IV access was obtained after failed attempts at peripheral IV venous attempts lactated Ringer bolus was begun and 1 amp of epinephrine was pushed patient had a response with a blood pressure elevation in the low 100s. Per EMS patient was in A. fib. Patient was recently in this hospital and transferred to [facility] about 1 week ago for possible liver of liver failure. On arrival patient is on a nonrebreather facemask TRAVEL OUTSIDE OF THE [place] IN LAST 30 DAYS: No - Related Data Allergies/Adverse Reactions: No Known Allergies Allergy (Verified 12/09/18 09:31) Past Medical History - Social History Smoking Status: Unknown if Ever Smoked - Patient in critical state of hypotension and unresponsive therefore history was unobtainable Family History: Reviewed & Not Pertinent - Past Medical History Cardiac Medical History: Reports: Hx Hypertension - medicated Denies: Hx Coronary Artery Disease, Hx Heart Attack Pulmonary Medical History: Reports: Hx Pneumonia Denies: Hx Asthma, Hx Bronchitis, Hx COPD Neurological Medical History: Denies: Hx Cerebrovascular Accident, Hx Seizures Renal/ Medical History: Denies: Hx Peritoneal Dialysis GI Medical History: Denies: Hx Hepatitis, Hx Hiatal Hernia, Hx Ulcer Musculoskeletal Medical History: Reports Hx Arthritis Infectious Medical History: Denies: Hx Hepatitis Past Surgical History: Denies: Hx Hysterectomy, Hx Mastectomy, Hx Open Heart Surgery, Hx Pacemaker - Immunizations Hx Diphtheria, Pertussis, Tetanus Vaccination: Yes Review of Systems - Review of Systems Constitutional: See HPI Physical Exam - Vital signs Vitals: Resp Pulse Ox 25 H 84 L 10/30/19 10:49 10/30/19 10:49 Interpretation: Normal, Hypotensive, Hypoxic, Tachypneic, Other - Pale color - General In distress: Severe - HEENT Head: Normocephalic, Atraumatic Eyes: Normal Conjunctiva: Other - Pale conjunctiva Pupils: PERRL Mouth/Lips: Other - Dry oral mucosa pale gums. Mucous membranes: Dry Neck: Normal - Respiratory Respiratory status: Depressed respirations Chest status: Nontender Breath sounds: Normal, Decreased air movement Chest palpation: Normal - Cardiovascular Rhythm: Regular Heart sounds: Normal auscultation, S1 appreciated, S2 appreciated Murmur: No Pulses: Decreased: Brachial, Radial Normal capillary refill: No - Delayed capillary refill. Course - Re-evaluation Re-evalutation: 10/30/19 12:23 Patient's condition deteriorated while in the emergency department with hypotension bradycardia and agonal respirations. We elected to intubate patient. Also be given fluid boluses of lactated Ringer's and normal saline. A central line was placed in the right femoral area successfully. Prior attempt at right subclavian central line was attempted prior to the femoral. Patient's conventional condition continued to be hypotensive and started having blood coming from mouth. NG tube was inserted. IV antibiotics were ordered including Zosyn 3.25 and vancomycin [address] case [address] Garzon cemetery keeper cemetery keeper of the day. Dr. Garzon is creating a bed available for patient and will be down shortly to take care of patient. Discussed with family members her niece Ms. Welch who is in the family room and explained the critical nature of her aunt. 10/30/19 12:25 Laboratory values are still pending at this time as we speak. Dr. Garzon has arrived bedside ultrasound shows ascites complex. Ultrasound of the heart shows that there is a good ventricular squeeze. increased her nor epi to 4 0 mics. Rapid blood transfusion is ordered at this time. Patient also has been ordered 2 units of fresh frozen plasma and 2 units of platelets. Chest x-ray has been done showing no pneumothorax toribio out in the left lung ET tube is just above the toor requiring it to be pulled back by 3 cm. NG tube appears to be in place. 10/30/19 12:27 Care transferred over to Dr. Garzon at this time. - Vital Signs Vital signs: Temp Pulse Resp BP Pulse Ox 98.0 F 60 21 H 78/56 L 76 L 10/30/19 10:58 10/30/19 10:58 10/30/19 11:03 10/30/19 11:03 10/30/19 11:03 - Laboratory Result Diagrams: 10/30/19 13:37 10/30/19 13:37 Laboratory results interpreted by me: 10/30/19 10/30/19 10/30/19 11:02 12:00 12:00 WBC 12.2 H RBC 1.38 L Hgb 4.6 L* Hct 14.8 L* MCV 107 H D MCHC 30.9 L RDW 19.3 H Plt Count 85 L Seg Neuts % (Manual) 22 L Lymphocytes % (Manual) 69 H Monocytes % (Manual) 1 L Metamyelocytes % 3 H Abs Lymphs (Manual) 8.4 H PT 36.1 H Potassium 5.9 H Chloride 115 H Carbon Dioxide 9 L* BUN 32 H Creatinine 1.30 H Est GFR ( Amer) 47 L Est GFR (MDRD) Non-Af 39 L Glucose 157 H Lactic Acid (Sepsis) Calcium 8.0 L Total Protein 4.2 L Albumin 1.8 L Crossmatch 10/30/19 10/30/19 12:00 12:00 WBC RBC Hgb Hct MCV MCHC RDW Plt Count Seg Neuts % (Manual) Lymphocytes % (Manual) Monocytes % (Manual) Metamyelocytes % Abs Lymphs (Manual) PT Potassium Chloride Carbon Dioxide BUN Creatinine Est GFR ( Amer) Est GFR (MDRD) Non-Af Glucose Lactic Acid (Sepsis) 12.1 H Calcium Total Protein Albumin Crossmatch See Detail - EKG Interpretation by Me EKG shows normal: Sinus rhythm Rate: Normal Mozelle/QRS: Left axis deviation Additional EKG results interpreted by me: 10/30/19 12:45 Second EKG 12-lead done 1154 shows normal sinus rhythm rate of 64 and consider anterolateral septal infarct. Procedures - Central Line Right Subclavian Consent obtained: No - emergent Central line pre-insertion: Sterile PPE donned, Chloraprep applied, Sterile drapes applied Central line lumen type: Triple Ultrasound guided: No Complications: Yes - unsuccessful Right Femoral Consent obtained: No - emergency Central line pre-insertion: Chloraprep applied, Sterile drapes applied Central line lumen type: Triple Ultrasound guided: No Line secured with sutures: Yes Central line post-insertion: Blood return from lumens, Sutured, Sterile dressing applied Number of attempts: 2 - Conscious Sedation Conscious sedation Consent obtained: No - emergent Emergent conditions applies.: E. - ASA Classification - hypotensive Airway Evaluation: Normal anatomy, Other - false dentures Mallampati Classification: Class 1 Used during procedure: Suction available, Other - blood in oropharynx Medications administered: Versed - versed drip, Etomidate, Other - succinylcholine I personally performed/intraservice time: Sedation, Procedure, 30 min or less, 31-45 min, 46-60 min Complications: No - bleed in orppharynx required suctioning - Intubation Orotracheal Time of Intubation: 11:15 Mallampati Classification: Class 1 Medications: Etomidate, Succinylcholine Blade type: Simon Blade size: 3 ETT size: 7.5 ETT secured at: Lips ETT secured at (cm): 22 End tidal CO2 confirmed: Yes Post Intubation Xray: Yes - et tube just above toro. white out in left lung Intubation Complications: No complications Critical Care Note - Critical Care Note Total time excluding time spent on procedures (mins): 69 Discharge - Discharge Clinical Impression: Upper GI hemorrhage, abdominal ascites, pneumonia, Lactic acidosis GI bleed Qualifiers: GI bleed type/associated pathology: gastrointestinal hemorrhage with hematemesis Qualified Code(s): K92.0 - Hematemesis Hypotension Qualifiers: Hypotension type: hypotension due to hypovolemia Qualified Code(s): I95.89 - Other hypotension; E86.1 - Hypovolemia Anemia Qualifiers: Anemia type: unspecified type Qualified Code(s): D64.9 - Anemia, unspecified Condition: Critical Disposition: ADMITTED INPATIENT Admitting Provider: Quan (Marketing And Development Coordinator) Unit Admitted: ICU
[2019-10-30] MEDS ORDERED: ATROPINE SULFATE INJ 1 MG/10 ML DISP.SYRIN IV ONE (11:14)
[2019-10-30] MEDS ORDERED: SUCCINYLCHOLINE CHLORIDE INJ 200 MG/10 ML VIAL IV ONE (11:15)
[2019-10-30] MEDS ORDERED: ETOMIDATE INJ/PF 20 MG/10 ML SDV IV ONE ×2 (11:15→12:00)
[2019-10-30] MEDS ORDERED: PANTOPRAZOLE SODIUM 40 MG VIAL IV ONE (11:20)
[2019-10-30] MEDS ORDERED: MIDAZOLAM HCL 50 MG/100 ML RTUINJ IV PRN (11:22)
[2019-10-30] MEDS ORDERED: RINGERS SOLUTION,LACTATED 1,000 ML IV ONE (11:30)
[2019-10-30 11:48] LABS: ALBUMIN 1.8 g/dL (3.5-5.0); ALKALINE PHOSPHATASE 55 U/L (38-126); ASPARTATE AMINO TRANSFERASE 34 U/L (14-36); BILIRUBIN,DIRECT 0.3 mg/dL (0.0-0.4); BILIRUBIN,TOTAL 0.6 mg/dL (0.2-1.3); BLOOD UREA NITROGEN 32 mg/dL (7-20); CHLORIDE 115 mmol/L (98-107); GLUCOSE 157 mg/dL (75-110); POTASSIUM 5.9 mmol/L (3.6-5.0); TOTAL PROTEIN 4.2 g/dL (6.3-8.2)
[2019-10-30] MEDS ORDERED: VANCOMYCIN HCL INJ 1000 MG VIAL IV ONE (11:49)
[2019-10-30] MEDS ORDERED: PANTOPRAZOLE SODIUM 40 MG VIAL IV PRN (11:49)
[2019-10-30] MEDS ORDERED: PIPERACILLIN/TAZOBACTAM 3.375 GM VIAL IV ONE (11:50)
[2019-10-30 11:53] LABS: ANION GAP 18 (5-19)
[2019-10-30 11:56] LABS: CARBON DIOXIDE 9 mmol/L (22-30)
[2019-10-30] MEDS ORDERED: NORMAL SALINE 250 ML IV PRN (11:56)
[2019-10-30] MEDS ORDERED: SODIUM BICARBONATE 8.4% INJ 50 MEQ/50 ML DISP.SYRIN IV ONE ×8 (11:59→14:46)
[2019-10-30] MEDS ORDERED: ROCURONIUM BROMIDE INJ 50 MG/5 ML VIAL IV ONE ×2 (12:00→12:53)
[2019-10-30] MEDS ORDERED: SUCCINYLCHOLINE CHLORIDE INJ 200 MG/10 ML VIAL ONE (12:00)
[2019-10-30] MEDS ORDERED: NORMAL SALINE 1000 ML 1,000 ML IV ONE ×2 (12:04→12:45)
[2019-10-30] MEDS ORDERED: DEXTROSE 5%-WATER 250 ML with EPINEPHRINE/PF 1 MG IV PRN ×2 (12:07)
[2019-10-30 12:16] LABS: INTERNATIONAL RATION (INR) 3.51; PROTHROMBIN TIME 36.1 SEC (11.4-15.4)
[2019-10-30 12:22] LABS: MEAN CORPUSCULAR HEMOGLOBIN 33.1 pg (27.0-33.4); MEAN CORPUSCULAR HGB CONC 30.9 g/dL (32.0-36.0); RED BLOOD COUNT 1.38 10^6/uL (3.72-5.28); RED CELL DISTRIBUTION WIDTH 19.3 % (11.5-14.0); WHITE BLOOD COUNT 12.2 10^3/uL (4.0-10.5)
[2019-10-30 12:28] LABS: MEAN CORPUSCULAR VOLUME 107 fl (80-97)
[2019-10-30 12:31] LABS: HEMOGLOBIN 4.6 g/dL (12.0-15.5)
[2019-10-30 12:32] LABS: HEMATOCRIT 14.8 % (36.0-47.0)
[2019-10-30 12:33] LABS: PLATELET COUNT 85 10^3/uL (150-450)
[2019-10-30] MEDS ORDERED: TRANEXAMIC ACID INJ/PF 1,000 MG/10 ML SDV IV ONE (12:36)
--- NOTE | 2019-10-30 12:45 | EKG REPORT ---
SEVERITY:- OTHERWISE NORMAL ECG - SINUS RHYTHM : Confirmed by: Meera Rust MD 30-Oct-2019 12:43:57
[2019-10-30 12:53] LABS: ABSOLUTE LYMPHOCYTES# (MANUAL) 8.4 10^3/uL (0.5-4.7); ABSOLUTE MONOCYTES # (MANUAL) 0.1 10^3/uL (0.1-1.4); BAND NEUTROPHILS % (MANUAL) 3 % (3-5); BASOPHILS % (MANUAL) 0 % (0-2); EOSINOPHILS % (MANUAL) 2 % (0-6); LYMPHOCYTES % (MANUAL) 69 % (13-45); METAMYELOCYTES % (MANUAL) 3 % (0-1); MONOCYTES % (MANUAL) 1 % (3-13); NUCLEATED RED BLOOD CELLS 1 /100 WBC (0); SEGMENTED NEUTROPHILS % (MAN) 22 % (42-78); TOTAL CELLS COUNTED 100
[2019-10-30 12:56] LABS: ANISOCYTOSIS 2+; BURR CELLS SLIGHT; OVALOCYTES 1+; PLATELET COMMENT DECREASED; POIKILOCYTOSIS 2+; POLYCHROMASIA SLIGHT; TEAR DROP CELLS SLIGHT
[2019-10-30] MEDS ORDERED: OCTREOTIDE ACETATE INJ/PF 100 MCG/1 ML SDV ONE ×2 (13:05→13:06)
--- NOTE | 2019-10-30 13:34 | RADIOLOGY REPORT (SQ) ---
EXAM DESCRIPTION: CHEST SINGLE VIEW COMPLETED DATE/TIME: 10/30/2019 1:00 pm REASON FOR STUDY: respiratory failure COMPARISON: None. EXAM PARAMETERS: NUMBER OF VIEWS: One view. TECHNIQUE: Single frontal radiographic view of the chest acquired. RADIATION DOSE: NA LIMITATIONS: None. FINDINGS: LUNGS AND PLEURA: Opacification of the left lung associated with abrupt cut off of the lef t main bronchus and volume loss. There is no pneumothorax. MEDIASTINUM AND HILAR STRUCTURES: As above. HEART AND VASCULAR STRUCTURES: The cardiac silhouette is partially obscured. The pulmonary vasculat ure is within normal limits. BONES: No acute findings. HARDWARE: The tip of the endotracheal tube projects at the level of the toro. The tip of the enter ic tube projects past the costosternal junction and outside the field of view of the radiograph. OTHER: No other finding. IMPRESSION: Opacification of the left lung associated with abrupt cut off of the left main bronchus and volume loss. Tube and lines as above. TECHNICAL DOCUMENTATION: JOB ID: [id number] [employer]- All Rights Reserved Reading location - IP/workstation name: [email or web address]
[2019-10-30] MEDS ORDERED: SODIUM BICARBONATE 8.4% INJ 50 MEQ/50 ML DISP.SYRIN ONE ×4 (13:47→14:50)
[2019-10-30] MEDS ORDERED: CALCIUM GLUCONATE 1000 MG/10 ML INJ IV ONE ×2 (13:47)
[2019-10-30 13:56] LABS: ABSOLUTE BASOPHILS # (AUTO) 0.1 10^3/uL (0.0-0.2); ABSOLUTE EOSINOPHILS # (AUTO) 0.2 10^3/uL (0.0-0.6); ABSOLUTE LYMPHOCYTES (AUTO) 3.7 10^3/uL (0.5-4.7); ABSOLUTE MONOCYTES (AUTO) 0.6 10^3/uL (0.1-1.4); ABSOLUTE NEUT (AUTO) 10.7 10^3/uL (1.7-8.2); BASOPHILS % (AUTO) 0.4 % (0-2); EOSINOPHILS % (AUTO) 1.6 % (0-6); HEMATOCRIT 31.9 % (36.0-47.0); LYMPHOCYTES % (AUTO) 24.1 % (13-45); MEAN CORPUSCULAR HGB CONC 31.7 g/dL (32.0-36.0); MONOCYTES % (AUTO) 3.6 % (3-13); RED BLOOD COUNT 3.37 10^6/uL (3.72-5.28); RED CELL DISTRIBUTION WIDTH 16.9 % (11.5-14.0); SEGMENTED NEUTROPHILS % (AUTO) 70.3 % (42-78); TOTAL CELLS COUNTED % (AUTO) 100 %; WHITE BLOOD COUNT 15.2 10^3/uL (4.0-10.5)
[2019-10-30] MEDS ORDERED: DEXTROSE 5%-WATER 250 ML with NOREPINEPHRINE BITARTRATE 4 MG IV PRN ×4 (14:00→18:20)
[2019-10-30 14:02] LABS: INTERNATIONAL RATION (INR) 2.82; PROTHROMBIN TIME 30.3 SEC (11.4-15.4)
[2019-10-30 14:04] LABS: PARTIAL THROMBOPLASTIN TIME 124.2 SEC (23.5-35.8)
--- NOTE | 2019-10-30 14:07 | RADIOLOGY REPORT (SQ) ---
EXAM DESCRIPTION: KUB/ABDOMEN (SINGLE VIEW) COMPLETED DATE/TIME: 10/30/2019 1:57 pm REASON FOR STUDY: placement COMPARISON: 10/22/2019 NUMBER OF VIEWS: One view. TECHNIQUE: Supine radiographic image of the abdomen acquired. LIMITATIONS: None. FINDINGS: BOWEL GAS PATTERN: Normal bowel gas pattern. No dilated loops. CALCIFICATIONS: No suspicious calcifications. SOFT TISSUES: No gross mass or suggestion of organomegaly. HARDWARE: There appears to be a nasogastric or orogastric feeding tube with a large balloon. The tip of the tube is in the region of the gastric antrum. BONES: No acute fracture. No worrisome bone lesions. OTHER: No other significant finding. IMPRESSION: Tube placement. TECHNICAL DOCUMENTATION: JOB ID: [id number] [employer]- All Rights Reserved Reading location - IP/workstation name: [email or web address]
[2019-10-30 14:09] LABS: ALBUMIN 1.2 g/dL (3.5-5.0); ALKALINE PHOSPHATASE 38 U/L (38-126); ANION GAP 12 (5-19); ASPARTATE AMINO TRANSFERASE 162 U/L (14-36); BILIRUBIN,DIRECT 0.2 mg/dL (0.0-0.4); BILIRUBIN,TOTAL 0.4 mg/dL (0.2-1.3); BLOOD UREA NITROGEN 27 mg/dL (7-20); CARBON DIOXIDE 14 mmol/L (22-30); CHLORIDE 112 mmol/L (98-107); CREATINE KINASE 44 U/L (30-135); GLUCOSE 238 mg/dL (75-110); PHOSPHORUS 7.5 mg/dL (2.5-4.5); TOTAL PROTEIN 2.4 g/dL (6.3-8.2)
--- NOTE | 2019-10-30 14:12 | RADIOLOGY REPORT (SQ) ---
EXAM DESCRIPTION: CHEST SINGLE VIEW COMPLETED DATE/TIME: 10/30/2019 1:57 pm REASON FOR STUDY: placement COMPARISON: 10/30/2019 EXAM PARAMETERS: NUMBER OF VIEWS: One view. TECHNIQUE: Single frontal radiographic view of the chest acquired. RADIATION DOSE: NA LIMITATIONS: None. FINDINGS: LUNGS AND PLEURA: As on the examination performed earlier, or opacification of the left h emithorax with loss of volume. Compensatory hypertrophy of the right lung. No pneumothorax. MEDIASTINUM AND HILAR STRUCTURES: No masses. Contour normal. HEART AND VASCULAR STRUCTURES: Mildly prominent markings in the right perihilar region may be on the basis of underlying edema. BONES: No acute findings. HARDWARE: Endotracheal tube is again identified with the tip at the level of the toro. OTHER: No other significant finding. IMPRESSION: 1. Status post bronchoscopy. No evidence of pneumothorax. 2. Endotracheal tube is again identified with the tip at the level of the toro. The patient's pro vider is aware of the results of this examination. TECHNICAL DOCUMENTATION: JOB ID: [id number] [employer]- All Rights Reserved Reading location - IP/workstation name: [email or web address]
[2019-10-30 14:17] LABS: CALCIUM 5.7 mg/dL (8.4-10.2)
[2019-10-30 14:20] LABS: CREATINE KINASE MB 1.06 ng/mL (<4.55); HEMOGLOBIN 10.1 g/dL (12.0-15.5); MEAN CORPUSCULAR VOLUME 95 fl (80-97); TROPONIN I 0.014 ng/mL
[2019-10-30] MEDS ORDERED: NORMAL SALINE 500 ML with OCTREOTIDE ACETATE 500 MCG IV PRN ×4 (14:26→19:52)
[2019-10-30] MEDS ORDERED: WATER FOR INJECTION,STERILE 1,000 ML with SODIUM BICARBONATE 125 MEQ IV PRN ×2 (14:30)
[2019-10-30] MEDS ORDERED: DEXTROSE 50%-WATER 25 GM/50 ML DISP.SYRIN IV ONE ×2 (14:34)
[2019-10-30] MEDS ORDERED: INSULIN REG, HUMAN 100 UNIT/ML 3 ML VIAL (PYX) ONE (14:34)
[2019-10-30] MEDS ORDERED: INSULIN REG, HUMAN 100 UNIT/ML 3 ML VIAL (PYX) IV ONE (14:34)
[2019-10-30 14:38] LABS: ARTERIAL BLOOD BASE EXCESS -11.7 mmol/L; ARTERIAL BLOOD H2CO3 1.28 mmol/L (1.05-1.35); ARTERIAL BLOOD O2 SATURATION 97.5 % (94-98); ARTERIAL BLOOD PCO2 42.6 mmHg (35-45); ARTERIAL BLOOD PO2 119.7 mmHg (80-100); ARTERIAL BLOOD TOTAL CO2 17.3 mmol/L (21-25)
[2019-10-30 14:42] LABS: PLATELET COUNT 62 10^3/uL (150-450)
[2019-10-30 14:45] LABS: ARTERIAL BLOOD FIO2 100%
[2019-10-30 14:46] LABS: ARTERIAL BLOOD PH 7.19 (7.35-7.45)
[2019-10-30] MEDS ORDERED: PHYTONADIONE INJ 10 MG/1 ML AMPULE IV ONE (14:48)
[2019-10-30] MEDS ORDERED: NOREPINEPHRINE BITARTRATE INJ/PF 4 MG/4 ML SDV IV ONE (14:48)
[2019-10-30] MEDS ORDERED: EPINEPHRINE INJ 1 MG/10 ML DISP.SYRIN ONE (14:53)
[2019-10-30] MEDS ORDERED: PANTOPRAZOLE SODIUM 80 MG in NORMAL SALINE 100 ML IV ONE (15:00)
[2019-10-30] MEDS ORDERED: TRANEXAMIC ACID INJ/PF 1,000 MG/10 ML SDV IV SCH (15:15)
--- NOTE | 2019-10-30 15:19 | Operative Report ---
Bedside Procedure - History of Present Illness History of Present Illness: 84-year-old white female with upper GI bleed hemorrhagic shock need for rapid transfusion Indication for Procedure: hemorrhagic shock, need for large bore IV access Date: 10/30/19 Provider: PADMINI LINDO - Central Line Left Femoral Time completed: 12:00 Consent obtained: No Central line pre-insertion: Chloraprep applied, Sterile drapes applied Central line lumen type: Cordis/Introducer Ultrasound guided: No CM at insertion site: 15 Line secured with sutures: Yes Central line post-insertion: Blood return from lumens, Biopatch applied, Sutured, Sterile dressing applied Number of attempts: 1 Complications: No Notes: 10/30/19 15:18
--- NOTE | 2019-10-30 15:27 | Operative Report ---
Bedside Procedure - History of Present Illness History of Present Illness: 84-year-old white female with upper GI bleed hemorrhagic shock need with unstable hemodynamics. Post cardiac arrest Procedure Procedure: Placement of left axillary arterial catheter with US guidance Pre-Procedure Diagnosis: Hemorrhagic shock Post-Procedure diagnosis: Same Surgeon: Quan Complications: None EBL: 15 ml Sutured Sterile dressing Placed over a non sterile IV dressing close to site. Patient was identified secondary to urgent critical care consult in the emergency room. The left axilla was prepped and draped. In sterile ultrasound guidance a Seldinger needle was placed into a pulsatile axillary artery. Next a Seldinger wire was placed without difficulty. After this the needle was removed and exchanged with a long 20-gauge catheter. Pulsatile blood flow was noted and blood was sent for ABG. The catheter was sutured in place and then affixed to transducer. No complications patient tolerated procedure well Emergently without consent Indication for Procedure: hemorrhagic shock Date: 10/30/19 Provider: PADMINI LINDO
--- NOTE | 2019-10-30 15:36 | Operative Report ---
Bedside Procedure - History of Present Illness History of Present Illness: 84-year-old white female with upper GI bleed hemorrhagic shock need with unstable hemodynamics. Post cardiac arrest. UGI bleed seen. Procedure Procedure: Placement of Sengstaken-Long tube Pre-Procedure Diagnosis: Massive GI bleed suspect esophageal varices Post-Procedure diagnosis: Same Surgeon: Quan Complications: None EBL: None related to procedure Patient was identified secondary to urgent critical care consult in the emergency room. She had had hypotension with cardiac arrest from hemorrhagic shock. Massive transfusion protocol was under way. It was noted that there was significant bout of blood from her oral cavity and under direct evaluation the seen coming from the esophagus. The balloons on the Mcmillan Long were all deflated. Using direct laryngoscopy with multiple attempts to assure esophageal placement the tube was able to be placed. There is advanced to 50 cm and an x-ray was taken. X-ray showed looping in the stomach and was pulled back successfully in appropriate position. At this point when it was noted to be in the stomach appropriately the balloon was inflated to 200 cc and pulled back until resistance was met. The tube was clamped. Next the esophageal tube was then inflated with 20 cc. Bleeding temporarily stopped however reoccurred and another teaspoon 10 cc was introduced for a total of 30 cc. The tube was maintained and taut at that point football helmet was applied over the patient's head and tubes were placed through the middle face mask. This was used to secure tension on the Edgar Long tube. Post procedure chest x-ray and KUB shows appropriate positioning. Indication for Procedure: Airway obstruction Date: 10/30/19 Provider: PADMINI LINDO
--- NOTE | 2019-10-30 15:48 | Progress Note ---
Provider Note Provider Note: I was called by the emergency room personnel and physician for this 84-year-old white female who came in hypotensive, pale and what appears to be shock. We were not aware at the time that the patient had a recent variceal bleed and had variceal banding, released a number of days ago. Earlier today she was getting her hair done and felt weak and syncopal. A central line is been placed and she has been intubated because of her unstable hemodynamics and pulmonary pattern. She appeared pale but had no evidence for upper GI bleed at that time. We were not aware of her previous diagnosis. The niece was not available at the time that we arrived. When I arrived the patient blood pressure was extremely low wi th a systolic of 50/30. She has been on Levophed epinephrine and was on a Versed drip. Her belly appeared distended and on ultrasound had evidence of ascites. It appeared slightly complex but we were not sure that it was blood. Given her status and her pale skin I asked for a rapid massive transfusion protocol and asked for the rapid transfuser to be started. I then placed a large bore Cordis catheter in the left femoral vein and begin resuscitation. She received at least 8 units of blood, 4 FFP but unfortunately could only get 1 unit of platelets secondary to no platelets available. Because we are concerned that she had intraperitoneal hemorrhage I quickly performed a paracentesis under ultrasound and revealed ascitic fluid without blood. Only 20 to 30 cc was pulled back for diagnostic purposes only. At this point the patient's blood pressure continue to decline and she had a cardiac arrest which improved with epi and fluid resuscitation. Rapid transfuser was ongoing and with this blood pressure significantly improved. We observe that blood was coming from the oral cavity and under visual inspection with a glide scope and laryngoscope we could see that is coming from the esophagus. At this point given the urgent and life-threatening nature of her bleed a 6 a Long tube was placed. Its initial placement was confirmed by KUB. 200 cc of air were placed and the balloon was pulled back until it met resistance. At this point 20 cc of air were then instilled in the esophageal balloon After approximately 5 minutes bleeding was still noted and another 10 cc for a total of 30 cc was placed. The introduction tubes were double clamped and taped. She continued to have hemodynamic instability and the left side of her chest appeared to be not arising like the right. Critical care ultrasound revealed no pneumothorax on either the right or left. Chest x-ray showed what appeared to be ET tube deep in the right mainstem however because of all the confluence of tubes was difficult to see. At this point patient did go into another cardiac arrest. She responded to epi and a bronchoscope during the the resuscitation revealed right mainstem bronchus intubation. The ET tube was brought back from 22 cm to 16 cm with visualization of both toro. At that point we suctioned the left lung and removed blood that was also noted to be there. She was extremely labile during the entire time in the emergency room. She is dependent on Levophed and epi at this point. Because of her labile blood pressure and left axillary A-line was placed. (It should be noted that an IV was close to the placement of the arterial catheter a sterile dressing was placed over this to maintain sterility of the a line.) Review of labs show an initial entrance hemoglobin approximately 5 with hematocrit of 15 white count was 12. After transfusion of blood products the last hemoglobin is 10 and 32. Platelets on admission was 85 they are now 67. Her INR was 3.5 now 2.82. Vitamin K 10 mg IV was ordered. She also is on a Tranexemic drip after bolus. Given the amount of PRBC transfused, Calcium gluconate was instilled with 2 amps of NaHCO3. Other pertinent labs show a potassium of 6 bicarb of 14. She was given glucose and insulin. She was also given a total of 5 A of bicarb throughout her sojourn in the emergency room. To maintain the taut nature of the sense of Long tube which is necessary a football helmet was then used to maintain stability. Her ET tube remains at 17 centimeters and was verified by bronchoscope. I did talk with the niece and discussed with her the very ill nature of her aunt. We discussed the possibility of poor neurological outcome given the extent of her disease process. The niece when asked still wanted to maintain full resuscitation efforts. The time of this dictation patient is on 20 of Levophed 2 of epi for Versed. At one point during the placement of 6 a Long tube we did need to paralyze the patient in order to facilitate placement of the Long tube. She was sedated for this. Currently she is on assist control tidal volume of 430 PEEP of 10 FiO2 of 100% rate of 18. Given K-centra as well. She has a right femoral triple-lumen catheter in and a large bore Cordis catheter in the left femoral vein. These were done during the emergent resuscitation process. She has a left axillary arterial catheter. Pascal has been placed. I placed a phone call to [facility] for acceptance. 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 We will maintain constant vigilance in the emergency room prior to transfer and correct any electrolyte and lab abnormalities. Accepted for transfer to [facility] Total critical care time other than 80 minutes
[2019-10-30] MEDS ORDERED: DEXTROSE 5%-WATER 250 ML with VASOPRESSIN 100 UNIT IV PRN ×2 (15:52)
[2019-10-30] MEDS ORDERED: VASOPRESSIN INJ 20 UNIT/1 ML VIAL ONE (15:55)
[2019-10-30] MEDS ORDERED: PHYTONADIONE IV ONE (16:00)
[2019-10-30] MEDS ORDERED: NORMAL SALINE IV ONE (16:00)
[2019-10-30] MEDS ORDERED: HUM PROTHROMBIN CPLX IV ONE ×6 (17:00)
[2019-10-30] MEDS ORDERED: [UNRECOGNIZED DRUG - OTHER] IV ONE ×6 (17:00)
[2019-10-30 21:22] VITALS: BP 82/43
--- NOTE | 2019-10-31 00:05 | EKG REPORT ---
SEVERITY:- BORDERLINE ECG - SINUS RHYTHM BORDERLINE LEFT AXIS DEVIATION BORDERLINE R WAVE PROGRESSION, ANTERIOR LEADS : Confirmed by: Meera Rust MD 31-Oct-2019 00:04:02
[2019-10-31 10:36] LABS: PATH REVIEW PATHOLOGIST REVIEWED
== END 2019-10-30 17:36 | disposition short-term general hospital (02) ==
LOC: ER 10:47 → EH 13:22 → UNDOADMIN 13:22
PROC: 0BH17EZ Insertion of Endotracheal Airway into Trachea, Via Natural or Artificial Opening (ICD-10-PCS; principal; 2019-10-30)
PROC: 06HM33Z Insertion of Infusion Device into Right Femoral Vein, Percutaneous Approach (ICD-10-PCS; 2019-10-30)
DX: R18.8 Other ascites (principal); K92.0 Hematemesis; E87.2 Acidosis; I95.89 Other hypotension; E86.1 Hypovolemia; D64.9 Anemia, unspecified; R61 Generalized hyperhidrosis; R00.1 Bradycardia, unspecified; I10 Essential (primary) hypertension; Z79.899 Other long term (current) drug therapy
CPT/HCPCS: 99291 ×2; 99292; 36620; 92950; 93005; 99152; 51702; 96375; 96365; 96366; 86900; 86901; 36415; 87040; 82553; 36430; 86850; 82803; 82550; 83735; 84100; 85025; 85610; 85730; 87070; 87077; 80053; 84484; 87186; 86920; 83605; 87150 ×26; 71045; 74018; 94660; 93010; 31500; 36556; C1894; P9017; P9016; P9035; J0461; J0610; J3490 ×8; J0171; J3430; C9113; A9270 ×2; J0330; J2250; J7060; J7030; J7040; J7120; C9132 ×2; 94002; J1815; J2354

== ENCOUNTER 2019-11-16 12:29 | Emergency (ER) | payer MEDICARE, MEDICAID ==
[2019-11-16] MEDS ORDERED: DEXTROSE 5%-1/2 NORMAL SALINE 500 ML IV ONE (13:36)
--- NOTE | 2019-11-16 13:36 | ER Document Report ---
ED Medical Screen (RME) - General Chief Complaint: Other Stated Complaint: FAILURE TO THRIVE Time Seen by Provider: 11/16/19 13:31 Primary Care Provider: CHARANJIT CESAR PA-C [Primary Care Provider] - Follow up as needed Mode of Arrival: Wheelchair Information source: Relative Notes: 84-year-old female presents to ED for failure to thrive. According to her niece Yahaira Hidalgo the patient was up at [facility] and was diagnosed as failure to thrive. She was ventilated for the last 2 weeks. According to the niece she was moved down to [facility] and placed on hospice. She states that the patient cannot have a feeding tube nasogastric and the hospital did not write any orders for any type of feeding. The niece states that she is not able to swallow anything due to the ventilator tube and the pain and no other nutrition was ordered. She states they talk to the hospice nurse and they told her that they could not do TPN on hospice. Patient is here now to find out how the patient is going to be fed while in [place]. She states at the previous hospital she was on palliative care before being moved to [place]. The niece states that she was switched from full care to palliative care yesterday and then transferred to [place] and no were discussed with the family about feeding or how she was going get nourishment. I have greeted and performed a rapid initial assessment of this patient. A comprehensive ED assessment and evaluation of the patient, analysis of test results and completion of medical decision making process will be conducted by an additional ED providers. TRAVEL OUTSIDE OF THE [place] IN LAST 30 DAYS: No - Related Data Allergies/Adverse Reactions: No Known Allergies Allergy (Verified 12/09/18 09:31) Past Medical History - Past Medical History Cardiac Medical History: Reports: Hx Hypertension - medicated Denies: Hx Coronary Artery Disease, Hx Heart Attack Pulmonary Medical History: Reports: Hx Pneumonia Denies: Hx Asthma, Hx Bronchitis, Hx COPD Neurological Medical History: Denies: Hx Cerebrovascular Accident, Hx Seizures Renal/ Medical History: Denies: Hx Peritoneal Dialysis GI Medical History: Denies: Hx Hepatitis, Hx Hiatal Hernia, Hx Ulcer Musculoskeltal Medical History: Reports Hx Arthritis Infectious Medical History: Denies: Hx Hepatitis Past Surgical History: Denies: Hx Hysterectomy, Hx Mastectomy, Hx Open Heart Surgery, Hx Pacemaker - Immunizations Hx Diphtheria, Pertussis, Tetanus Vaccination: Yes Physical Exam - Vital signs Vitals: Temp Pulse Resp BP Pulse Ox 97.5 F 78 12 125/62 98 11/16/19 12:51 11/16/19 12:51 11/16/19 12:51 11/16/19 12:51 11/16/19 12:51 Course - Vital Signs Vital signs: Temp Pulse Resp BP Pulse Ox 97.5 F 78 12 125/62 98 11/16/19 12:51 11/16/19 12:51 11/16/19 12:51 11/16/19 12:51 11/16/19 12:51 Doctor's Discharge - Discharge Referrals: CHARANJIT CESAR PA-C [Primary Care Provider] - Follow up as needed
[2019-11-16 16:03] LABS: HEMATOCRIT 33.9 % (36.0-47.0); HEMOGLOBIN 11.4 g/dL (12.0-15.5); MEAN CORPUSCULAR HEMOGLOBIN 29.5 pg (27.0-33.4); MEAN CORPUSCULAR HGB CONC 33.5 g/dL (32.0-36.0); PLATELET COUNT 247 10^3/uL (150-450); RED BLOOD COUNT 3.85 10^6/uL (3.72-5.28); RED CELL DISTRIBUTION WIDTH 21.5 % (11.5-14.0); WHITE BLOOD COUNT 23.5 10^3/uL (4.0-10.5)
[2019-11-16 16:05] LABS: ALBUMIN 2.5 g/dL (3.5-5.0); ALKALINE PHOSPHATASE 155 U/L (38-126); ANION GAP 18 (5-19); ASPARTATE AMINO TRANSFERASE 47 U/L (14-36); BILIRUBIN,DIRECT 1.9 mg/dL (0.0-0.4); BILIRUBIN,TOTAL 3.1 mg/dL (0.2-1.3); CALCIUM 8.7 mg/dL (8.4-10.2); CARBON DIOXIDE 23 mmol/L (22-30); CHLORIDE 104 mmol/L (98-107); GLUCOSE 79 mg/dL (75-110); POTASSIUM 4.1 mmol/L (3.6-5.0); TOTAL PROTEIN 5.9 g/dL (6.3-8.2)
[2019-11-16 16:33] LABS: BLOOD UREA NITROGEN 143 mg/dL (7-20)
[2019-11-16 16:37] LABS: ABSOLUTE LYMPHOCYTES# (MANUAL) 2.1 10^3/uL (0.5-4.7); ABSOLUTE MONOCYTES # (MANUAL) 1.4 10^3/uL (0.1-1.4); BAND NEUTROPHILS % (MANUAL) 1 % (3-5); BASOPHILS % (MANUAL) 0 % (0-2); EOSINOPHILS % (MANUAL) 0 % (0-6); LYMPHOCYTES % (MANUAL) 9 % (13-45); MONOCYTES % (MANUAL) 6 % (3-13); SEGMENTED NEUTROPHILS % (MAN) 84 % (42-78); TOTAL CELLS COUNTED 100
[2019-11-16 16:38] LABS: ANISOCYTOSIS 3+; BURR CELLS 1+; PLATELET COMMENT ADEQUATE; POIKILOCYTOSIS 1+
[2019-11-16 16:47] LABS: MEAN CORPUSCULAR VOLUME 88 fl (80-97)
[2019-11-16] MEDS ORDERED: 1/2 NORMAL SALINE 1,000 ML IV ONE (17:00)
[2019-11-16 17:32] LABS: APPEARANCE,URINE CLOUDY; BILIRUBIN,URINE NEGATIVE (NEGATIVE); COLOR,URINE YELLOW; GLUCOSE, URINE NEGATIVE (NEGATIVE); KETONES,URINE NEGATIVE (NEGATIVE); PROTEIN,URINE NEGATIVE (NEGATIVE); URINE SPECIFIC GRAVITY 1.013; UROBILINOGEN,URINE NEGATIVE mg/dL (<2.0)
--- NOTE | 2019-11-16 17:56 | ER Document Report ---
ED General - General Chief Complaint: Other Stated Complaint: FAILURE TO THRIVE Time Seen by Provider: 11/16/19 13:31 Primary Care Provider: CHARANJIT CESAR PA-C [Primary Care Provider] - Follow up as needed Mode of Arrival: Wheelchair TRAVEL OUTSIDE OF THE [place] IN LAST 30 DAYS: No - HPI Notes: 84-year-old terminally ill female with cirrhosis, chronic/recurrent bleeding related to esophageal varices, chronic coagulopathy and chronic hepatic encephalopathy discharged from [facility] yesterday to hospice care in a local fdc. The discharge team had had extensive discussions with the family and it was agreed that the patient would be placed on DNR/DNI status for comfort care only. The patient was not considered to be an appropriate candidate for NG tube or PEG tube placement. She had been receiving peripheral IV hydration when she was in the hospital and there was apparently some confusion with family with him apparently not understanding that she would not continue to receive IV fluids at the nursing facility. Family members demanded that patient be transferred to the emergency department today for us to address this situation. Patient's daughter reiterates that they want comfort measures only but that they are uncomfortable with her not getting any hydration at this point. - Related Data Allergies/Adverse Reactions: No Known Allergies Allergy (Verified 12/09/18 09:31) Past Medical History - General Information source: Relative Cannot obtain history due to: Altered mental status - Social History Smoking Status: Unknown if Ever Smoked Family History: Reviewed & Not Pertinent Patient has suicidal ideation: No Patient has homicidal ideation: No - Past Medical History Cardiac Medical History: Reports: Hx Hypertension - medicated Denies: Hx Coronary Artery Disease, Hx Heart Attack Pulmonary Medical History: Reports: Hx Pneumonia Denies: Hx Asthma, Hx Bronchitis, Hx COPD Neurological Medical History: Denies: Hx Cerebrovascular Accident, Hx Seizures Renal/ Medical History: Denies: Hx Peritoneal Dialysis GI Medical History: Denies: Hx Hepatitis, Hx Hiatal Hernia, Hx Ulcer Musculoskeletal Medical History: Reports Hx Arthritis Infectious Medical History: Denies: Hx Hepatitis Past Surgical History: Denies: Hx Hysterectomy, Hx Mastectomy, Hx Open Heart Surgery, Hx Pacemaker - Immunizations Hx Diphtheria, Pertussis, Tetanus Vaccination: Yes Review of Systems - Review of Systems -: Yes ROS unobtainable due to patient's medical condition Physical Exam - Vital signs Vitals: Temp Pulse Resp BP Pulse Ox 97.5 F 78 12 125/62 98 11/16/19 12:51 11/16/19 12:51 11/16/19 12:51 11/16/19 12:51 11/16/19 12:51 - Notes Notes: GENERAL: Frail elderly female with widespread ecchymoses who is encephalopathic and minimally interactive. SKIN: Decreased turgor with widespread ecchymoses. HEAD: Normocephalic atraumatic. EYES: PERRLA. Conjunctivae pale and sclerae icteric. EARS: CANALS AND TMS CLEAR. NOSE: CLEAR. MOUTH: Tacky oral mucosa with some dried blood in mouth. No stridor or edema. No drooling. NECK: Supple. No masses or thyromegaly. No JVD. BACK: Symmetrical without tenderness. CHEST: No respiratory distress. Scattered upper airway sounds bilaterally.. HEART: Regular rhythm. No murmur gallop or rub. ABDOMEN: Soft nontender without masses, organomegaly or rebound. Bowel sounds normally active. GENITALIA: Normal female. Extremities: Diffuse muscular wasting NEUROLOGICAL: Patient is drowsy and opens eyes when spoken to but will not follow commands Course - Re-evaluation Re-evalutation: 11/16/19 18:06 We placed a peripheral IV here and initiated normal saline. Patient did not require analgesia while in the emergency department but would anticipate potential need for this. stoneworker/discharge planning met with the family and reviewed situation and had some additional conversations with staff at the [facility]. It was agreed that they would accept the patient back to their facility on hospice care with administration of fluids via peripheral IV. We will also prescribe oral morphine for as needed use. Family member seemed well satisfied with current disposition and are agreeable to return the patient to custodial facility with hospice care. - Vital Signs Vital signs: Temp Pulse Resp BP Pulse Ox 97.5 F 78 12 94/76 L 96 11/16/19 12:51 11/16/19 12:51 11/16/19 12:51 11/16/19 16:08 11/16/19 16:08 - Laboratory Result Diagrams: 11/16/19 15:27 11/16/19 15:27 Laboratory results interpreted by me: 11/16/19 11/16/19 11/16/19 14:20 15:27 15:27 WBC 23.5 H Hgb 11.4 L Hct 33.9 L RDW 21.5 H Seg Neuts % (Manual) 84 H Band Neutrophils % 1 L Lymphocytes % (Manual) 9 L Abs Neuts (Manual) 20.0 H BUN 143 H Creatinine 5.44 H Est GFR ( Amer) 9 L Est GFR (MDRD) Non-Af 7 L Total Bilirubin 3.1 H Direct Bilirubin 1.9 H AST 47 H Alkaline Phosphatase 155 H Total Protein 5.9 L Albumin 2.5 L Urine Blood LARGE H Leukocyte Esterase Rfl LARGE H Discharge - Discharge Clinical Impression: Hepatic encephalopathy Cirrhosis Qualifiers: Hepatic cirrhosis type: unspecified hepatic cirrhosis Ascites presence: unspecified Qualified Code(s): K74.60 - Unspecified cirrhosis of liver Condition: Poor Disposition: HOME-SNF (ED ONLY) Additional Instructions: Normal saline 100 ml/hour IV continuously Prescriptions: Morphine Sulfate [Morphine Ir 15 mg Tablet] 15 mg PO Q6HP PRN #12 tablet PRN Reason: Morphine Sulfate [Roxanol] 20 mg PO Q4 PRN 7 Days #1 ml PRN Reason: Referrals: CHARANJIT CESAR PA-C [Primary Care Provider] - Follow up as needed
[2019-11-16] MEDS ORDERED: MORPHINE SULFATE 10 MG/ML INJ IV ONE (19:26)
[2019-11-16 21:17] VITALS: BP 73/51
== END 2019-11-16 21:40 ==
LOC: ER 12:29
DX: K72.90 Hepatic failure, unspecified without coma (principal); K74.60 Unspecified cirrhosis of liver; R62.7 Adult failure to thrive; Z66 Do not resuscitate; Z51.5 Encounter for palliative care
CPT/HCPCS: 99285; 96361; 96374; 36415; 85025; 80053; 81001; J2270; J7070